=== PATIENT | female | born 2005 | race Asian ===

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

== ENCOUNTER 2025-02-23 08:17 | Outpatient (AMB) | payer OTHER, SELFPAY ==
--- OUTSIDE RECORDS SUMMARY | 2025-02-23 08:29 | XMS_ITS | Clinical Summary ---
Author Organization [facility] Address [address] [place], [place] [id number] Phone Care Team Providers Care Conveyor Belt Operator Name Role Phone Unavailable Primary Care Provider Unavailabl e Allergies Active Allergy Reactions Criticality Noted Date Comments Environmental 04/08/2022 Medications loratadine (CLARITIN) 10 MG tabletIndication s:Allergic rhinitis, unspecified seasonality, unspecified trigger Take 1 tablet (10 mg total) by mouth daily. 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 15 tablet 2 1 Active chlorhexidine 0.12 % solution 1 Active Active Problems Problem Noted Date Diagnosed Date Alopecia areata 12/06/2020 Overview (08/12/2021): As of 12/2020. Sister also has it. Has been using a topical med x 1 week - borrowed from sister. As of 07/2021, following with derm here at [facility]. Getting kenalog injections, using topical 5% minoxidil. Assessment & Plan (11/14/2021 9:27 AM EDT): Doing well. Continue minoxodil topically. Discussed this may reoccur in the future and may return if needed. Assessment & Plan (08/12/2021 10:45 AM EST): Improving. Has derm f/u here 08/21/21. Assessment & Plan (07/10/2021 2:30 PM EST): Discussed repeat injection of kenalog versus observing. Carito prefers to wait and asks for a recheck next month. Will continue using the 5% minoxidil. Assessment & Plan (06/19/2021 12:23 PM EST): Intralesional kenalog 5 mg/mL administered to largest of the three patches of hair loss. Total amount used 1 mL. Verbal consent obtained from mother. Potential risks and benefits discussed. She prefers to continue treating the smaller patches topically. Assessment & Plan (01/30/2021 2:46 PM EDT): Prefers to start with topical treatment. If not seeing hair regrowth in the next 6 weeks then follow up with PCP Dr. Hammond for steroid injection. Assessment & Plan (12/06/2020 10:16 AM EDT): Will likely need steroid injection in scalp - schedule for next derm clinic. 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 On levothyroxine 67.5 mg daily since July 2019. Overdue for follow up. Never went for repeat labs. Menarche 01/2020, irregular. 12/21: Still no endo follow up. Off meds x 1 month because ran out. TSH was already elevated. Check again today. 05/23: Seen by endo, back on previous dose of levothyroxine, stable now. Thyroid ultrasound c/w autoimmune thyroid disease. F/u due 11/2021. Assessment & Plan (08/12/2021 10:45 AM EST): Continue levothyroxine 68.5 mcg daily (1/2 of 137 mcg tablet). Reinforced that she will need thyroid replacement for life. F/u with endo due 11/2021. Encouraged her to schedule this appt. Assessment & Plan (12/06/2020 10:28 AM EDT): Repeatedly lost to follow up. She was on levothyroxine 67.5 mg daily with inadequate response (TSH 8.48 as of 06/2020) but did not follow up with endocrinology as suggested. She has been on no medication x 1 month because her meds ran out. Needs endocrinology appointment [facility]. Will recheck TFTs today. I had family make appointment for endocrinology follow up while in the office with me. Appointment is scheduled for January 24, 2021 at 9:40 am. Assessment & Plan (06/18/2020 9:42 AM EST): Needs repeat thyroid labs and endo follow up. I will order TSH and FT4. Pt/parent to schedule endo appt. Allergic rhinitis 05/02/2019 Overview (06/18/2020): Chronic nasal congestion and rhinitis. Uses loratadine prn. Assessment & Plan (06/18/2020 9:39 AM EST): Continue loratadine prn. Resolved Problems Problem Noted Date Diagnosed Date Resolved Date Counseling and coordination of care 12/06/2020 08/30/2021 Overview (12/06/2020): [facility]CCs to support patient with adherence for endocrine follow up and with levothyroxine Need for case management follow-up 06/18/2020 08/12/2021 Overview (06/18/2020): Urine STI screen not done due to national shortage of tests. Testing to be done at next well visit or when tests become available. Primary amenorrhea 06/16/2018 0 Overview (06/16/2018): Suspect dx though patient is 13 year old and primary amenorrhea is usually a dx reserved for patients who have not had their first menses by age 15. Patient in Lexi stage 4 (for breast) and lexi 5 for area, she has not had her period. Mother with hx of thyroid disease. Sister had first period at age 18, and in [facility] therefore there may be a hx of PCOS in the family. Mother had first period at age 11. Assessment & Plan (06/18/2020 9:38 AM EST): Menarche January 2020. Irregular. Immunizations Immunization Administration Dates Next Due BCG 2005 COVID-19 Pfizer, monovalent, 12+ years 2,2021 DTaP 02/14/2012, 1,08/31/2006,08/16,2005,2005 HPV Vaccine 9 Valent 06/16/2018,05/12/2017 Hep A, ped/adol 06/16/2019,03/16/2012,02/14/2012 Hep B, ped/adol 02/14/2012, 6,2005,05/16,2005 HiB 08/31/2006, 6,2005,04/16 Hib (PRP-T) 08/31/2006, 6,2005,04/16 IPV 02/14/2012, 5,2005,04/16,2005 Influenza, injectable, quadr ivalent, preservative free 07/12/2022,06/18/2020,06/16/2019,06/16 Influenza, injectable, trivalent 07/28/2013,08/04,2005 Influenza, intradermal, quad rivalent, preservative free 07/28/2013,08/31/2006,2005 MMR 02/14/2012,08/31/2006 Meningococcal Conj (Menactra) MCV4P 08/12/2021,1 Tdap 05/12/2017 Typhoid 2010,03/31/2007,2007 Typhoid, ViCPs 2010,03/31/2007,2007 Varicella 05/12/2017,02/14/2012 Family History Medical History Relation Name Comments No Known Problems Brother No Known Problems Father Arevalo Thyroid disease Mother Seime Relation Name Status Comments Brother Alive Father Arevalo Alive Mother Seime Alive Hyperthyroid di sease Sister Alive irregular perio ds Social History Tobacco Use Types Packs/Day Years Used Date Smoking Tobacco: Never Smokeless Tobacco: Never Hunger/Food Answer Date Recorded In the last 12 months, did y ou or your family ever eat less than you felt you should because there wasn't enough money for food? No 08/12/2021 Stable Housing Answer Date Recorded Are you worried that in the next 2 months you may not have stable housing? No 08/12/2021 Transportation Concerns Answer Date Rec orded In the last 12 months, have you or your family ever had to go without healthcare because you didn't have a way to get there? No 08/12/2021 Hazards in Home Answer Date Recorded Think about the place you li ve. Do you have problems with any of the following? Pests (mice or roaches), mold, no/not working smoke detectors, water leaks, no window guards. No 2021 Financing Utilities Answer Date Recorde d In the last 12 months, has t he electric, gas, oil, or water company threatened to shut off your services in your home? No 08/12/2021 Safety at Home Answer Date Recorded Are you or your family worried about feeling saf e in your home? No 08/12/2021 Outside Support Answer Date Recorded Do you feel that you need mo re support from other people or programs to help you care for yourself or your family? Yes 08/12/2021 Understanding Health Concerns Answer Da te Recorded Do you need help understandi ng your or your child's healthcare needs (diagnosis, medications, plan, etc.)? Yes 08/12/2021 Financing Health Concerns Answer Date R ecorded In the last 12 months, was t here a time when your child needed to see a doctor or get medications or supplies but could not because of cost? No 08/12/2021 Missing School or Work Answer Date Italo rded Did you or your child miss s chool or work because of a health problem that could have been avoided? Yes 08/12/2021 Comments No Sex and Gender Information Value Date Recorded Sex Assigned at Female 06/18/2020 9:48 AM EST Legal Sex Female 2:08 PM EDT Gender Identity Female 06/18/2020 9:48 AM EST Sexual Orientation Straight 06/18/2020 9: 48 AM EST Last Filed Vital Signs Vital Sign Reading Time Taken Comments Blood Pressure 102/74 08/12/2021 10:21 AM EST Pulse 90 08/12/2021 10:21 AM EST Temperature 35.9 C (96.6 F) 04/08/2022 3:05 PM EDT Respiratory Rate - - Oxygen Saturation 99% 07/10/2018 9:54 AM EST Inhaled Oxygen Concentration - - Weight 56.7 kg (125 lb) 04/08/2022 3:05 PM EDT Height 161 cm (5' 3.4 ) 08/12/2021 10:21 AM EST Body Mass Index - - Plan of Treatment Health Maintenance Due Date Last Done Comments Men B Vaccine (1 of 2 - Standard) 2021 COVID-19 Vaccine ( season) 2024 08/12/2021, 2021, 01/17/2021 Influenza Vaccines (#1) 2025 07/12/20, 06/18/2020, 06/16/2019, Additional history exists DTaP,Tdap,and Td Vaccines (7 - Td or Tdap) 05/12/2027 05/12/2017, 02/14/2012, 08/14/2010, Additional history exists HIB Vaccines Completed 08/31/2006, 08/04, 2005, Additional history exists Hepatitis B Vaccines Completed 02/14/2012, 2005, 2005, Additional history exists IPV Vaccines Completed 02/14/2012, 06/03, 2005, Additional history exists MMR Vaccines Completed 02/14/2012, 08/31/2006 Varicella Vaccines Completed 05/12/2017, 02/14/2012 HPV Vaccines Completed 06/16/2018, 05/12/2017 Hepatitis A Vaccines Completed 06/16/2019, 03/16/2012, 02/14/2012 Meningococcal Vaccine Completed 08/12/2021, 017 Pneumococcal Vaccine Aged Out No long er eligible based on patient's age to complete this topic Procedures * Due to [place] state law, this organization might not be sharing sensitive test results. Procedure Name Priority Date/Time Associated Diagnosis Comments CHLAMYDIA AND GONORRHEA, AMPLIFIED Routine 08/12/2021 10:26 AM EST Encounter for routine child health examination without abnormal findings from Last 3 Months or Most Recently Relevant to Health Maintenance Results * Due to [place] state law, this organization might not be sharing sensitive test results. * Chlamydia and Gonorrhoea, Amplified (08/12/2021 10:26 AM EST) Chlamydia Trachomatis, DNA Probe NEGATIVE (NEG) [facility] Comment: No Chlamydia Trachomatis RNA detected in this patient's sample (REFERENCE RANGE/NORMAL VALUE: NOT DETECTED) Note: This test uses religious leader- mediated amplification method to detect rRNA from C. Trachomatis URINE GC AMP PROBE NEGATIVE (NEG) [facility] Comment: No Neisseria Gonorrhoeae RNA detected in this patient's sample (REFERENCE RANGE/NORMAL VALUE: NOT DETECTED) NOTE: This test uses religious leader-mediated amplification method to detect rRNA from N.Gonorrhoeae. A negative result does not preclude infection. In the case of a negative urine result, testing of an endocervical(female) or urethral (male) specimen is recommended if there is high clinical suspicion of infection. Due to very high sensitivity of Nucleic Acid Amplification Test, false positive results may occur. Therefore, specimen handling is extremely important. In patients in whom the disease is unlikely, additional sample for testing should be considered after an initial positive result. The performance characteristics of this test have not been evaluated in children. The Aptima Combo2 assay is not intended for the evaluation of suspected sexual abuse or for other medico-legal indications. The ordering provider should assess if the patient had consensual sex without risk of sexual abuse. Consult the [facility] if needed. Contact phone number . Therapeutic failure or success cannot be determined with the Aptima Combo2 assay since nucleic acid may persist following appropriate antimicrobial therapy. The Centers for Disease Control and Prevention (CDC) recommends confirmatory retesting using culture or a different nucleic acid amplification test when positive results occur, if indicated. Testing performed or reported by [facility], a Service of [facility], [address], [place] [address] Samson Saucedo MD, Asbestos Siding Installer [facility]# [id number] Urine 08/12/2021 10:2 6 AM EST 08/12/2021 10:09 PM EST us Brenda Hammond MD LAB MICROBIOLOGY - GENERAL ORDER DARLINE Final Result [facility] from Last 3 Months or Most Recently Relevant to Health Maintenance
--- NOTE | 2025-02-23 09:40 | A.OFFPC_ITS ---
Intake Visit Reasons: 6Mo Follow up Allergies No Known Allergies Allergy (Verified 08/18/24 09:12) Medication List - Last Reconciled 02/23/25 by Dashawn Whelan MD cholecalciferol (vitamin D3) 25 mcg PO DAILY 90 days levothyroxine 75 mcg PO DAILY Tobacco use date assessed: 08/18/24 Dental Screening Dental Screen Date: 08/18/24 HPI 6Mo Follow up HPI Details History - The patient is a 19 year old female pr esenting for the management of a thyroid disorder. - The patient reports current use of lev othyroxine at a dose of 75 mcg, which is usually taken daily, though occasionally it is forgotten. - It was previously noted that the patie nt's thyroid-stimulating hormone (TSH) levels were significantly elevated at 21.30 in August. - A repeat thyroid function test was rec ommended to be completed a couple of months post-August, but the patient indicated it was not performed at that time. - The patient has been staying with [facility] and is expected to remain in the area for one to two months allowing convenient access to follow-up testing. Medical History: - Thyroid disorder with past abnormal th yroid-stimulating hormone (TSH) levels Medications: - Levothyroxine 75 mcg daily, prescribed for thyroid disorder - Vitamin D supplementation Social History: - The patient is currently staying with her family and will be in the area for one to two months. Diagnostic Results: - Labs: Previous TSH level measured at 2 1.30 in August Problem List - Thyroid disorder with elevated thyroid -stimulating hormone (TSH) levels Patient Instructions - Scheduled for a new blood test to [facility] thyroid function. - Continue taking levothyroxine daily as prescribed. - Take vitamin D as previously directed. - Promptly visit the lab for the blood t est. Review of Systems - Endocrine: Reports regular usage of le vothyroxine; occasional missed doses but primarily consistent daily intake - General: No fever no chills - Neurological: No headaches no dizziness - Ear nose throat: No sore throat no hearing difficulty no ear pain - Cardiovascular: No syncope, no chest pain, no palpitations - Gastrointestinal: No nausea vomiting or diarrhea PFSH Social History Housing: House Patient Tobacco Use Status: Never used Tobacco e-Cigarette/Vaping Use: Never Used service: No Current occupational status: student Cognitive needs: No Hearing needs: No Vision needs: Yes Questionnaire Thrive Questionnaire Date Thrive assessed: 08/10/24 BETHANY-7 AMB Questionnaire BETHANY-7 Date BETHANY - 7 assessed: 08/17/24 Source: Developed by Drs. Mike Whatley, Florecita Bravo, Lucio Bernabe and colleagues, with an educational cooper from [employer]. Physical exam (Primary Care) Tobacco/Smoking Status: Tobacco use Status Tobacco use date assessed 08/18/24 02/23/25 09:41 Patient Tobacco Use Status Never used Tobacco 02/23/25 09:41 e-Cigarette/Vaping Use Never Used 02/23/25 09:41 Thrive Assessment: Date of Thrive Assessment Date Thrive assessed 08/10/24 02/23/25 09:41 Telehealth Telehealth Telehealth Platform: [employer] Location of provider rendering services: practice address Location of patient: address on file Patient Identification confirmed using: Name, : Yes Telehealth method: video Patient verbally consented to treatment: Yes Patient verbally consented to billing insurance company: Yes Patient informed of any privacy concerns related to visit: Yes Minutes spent on Phone/Video with Pt.: 13 Coding Level of Care Code Tele Est Pt Level 3 (27531) Diagnoses Other specified hypothyroidism E03.8 Vitamin D deficiency E55.9 Assessment & Plan Assessment & Plan (1) Other specified hypothyroidism: Code(s): E03.8 - Other specified hypothyroidism Category: Medical (2) Vitamin D deficiency: Code(s): E55.9 - Vitamin D deficiency, unspecified Category: Medical Plan History - The patient is a 19 year old female presenting for the management of a thyroid disorder. - The patient reports current use of levothyroxine at a dose of 75 mcg, which is usually taken daily, though occasionally it is forgotten. - It was previously noted that the patient's thyroid-stimulating hormone (TSH) levels were significantly elevated at 21.30 in August. - A repeat thyroid function test was recommended to be completed a couple of months post-August, but the patient indicated it was not performed at that time. - The patient has been staying with family and is expected to remain in the area for one to two months allowing convenient access to follow-up testing. Medical History: - Thyroid disorder with past abnormal thyroid-stimulating hormone (TSH) levels Medications: - Levothyroxine 75 mcg daily, prescribed for thyroid disorder - Vitamin D supplementation Social History: - The patient is currently staying with her family and will be in the area for one to two months. Diagnostic Results: - Labs: Previous TSH level measured at 21.30 in August Problem List - Thyroid disorder with elevated thyroid-stimulating hormone (TSH) levels Patient Instructions - Scheduled for a new blood test to monitor thyroid function. - Continue taking levothyroxine daily as prescribed. - Take vitamin D as previously directed. - Promptly visit the lab for the blood test. Orders: Orders Vitamin D 25-OH (D2 and D3) Today E03.8 - Other specified hypothyroidism, E55.9 - Vitamin D deficiency, unspecified TSH reflex Free T4 Today E03.8 - Other specified hypothyroidism, E55.9 - Vitamin D deficiency, unspecified
== END 2025-02-23 11:57 | disposition home or self-care (01) ==
LOC: HO.HMCC 08:17
PROVIDERS: Visit Provider Internal Medicine
DX: E03.8 Other specified hypothyroidism (principal); E55.9 Vitamin D deficiency, unspecified